=== PATIENT | male | born 1980 | race Caucasian/White ===

== ENCOUNTER → 2016-10-25 | Outpatient (REF) | payer OTHER ==
[2016-10-25 13:47] LABS: INR 1.01
== END ==
LOC: M LABDRAW1 13:32
PROVIDERS: ATTEND Physical Medicine & Rehabilitation
DX: Z01.818 Encounter for other preprocedural examination (principal); M47.892 Other spondylosis, cervical region

== ENCOUNTER 2019-01-19 07:44 | Day surgery (SDC) | payer OTHER ==
[~2019-01-19] VITALS: Ht 170.2 cm; Wt 116.3 kg
[2019-01-19] MEDS ORDERED: EPINEPHrine INJ 1 MG/ML 1ML AMP ONE (07:45)
[2019-01-19] MEDS ORDERED: dexameTHASONE 10 MG/1 ML VIAL PRES.FREE (J1100) ONE (07:45)
[2019-01-19] MEDS ORDERED: ROPIvacaine 0.5% 30 ML INJECTION (J2795 PER 1MG) ONE (07:45)
[2019-01-19] MEDS ORDERED: fentaNYL 250 MCG/5 ML INJECTION (J3010) As Ordered ONE (08:17)
[2019-01-19] MEDS ORDERED: PROPOFOL 200 MG/20 ML VIAL As Ordered ONE (08:17)
[2019-01-19] MEDS ORDERED: LIDOCAINE 2% INJ 100 MG/5 ML SDV (FOR ANES.) As Ordered ONE ×2 (08:17→12:54)
[2019-01-19] MEDS ORDERED: dexameTHASONE 4 MG/ML 1ML VIAL (J1100) As Ordered ONE (08:17)
[2019-01-19] MEDS ORDERED: ROCURONIUM BROMIDE 50 MG/5 ML VIAL As Ordered ONE (08:17)
[2019-01-19] MEDS ORDERED: ONDANSETRON 4MG/2ML VIAL (J2405) As Ordered ONE (08:17)
[2019-01-19] MEDS ORDERED: MIDAZOLAM INJ 2 MG/2 ML VIAL (J2250) As Ordered ONE ×2 (08:18→09:45)
[2019-01-19] MEDS ORDERED: IBUP80TA PO (08:58)
[2019-01-19] MEDS ORDERED: VANCOMYCIN 1000 MG/20 ML VIAL (J3370) As Ordered ONE (09:37)
[2019-01-19] MEDS ORDERED: VANCOMYCIN HCL 1,000 MG, VIAL MATE ADAPTER 1 EACH in D5W 250 ML IV ONE (09:45)
[2019-01-19] MEDS ORDERED: fentaNYL 100 MCG/2 ML INJECTION (J3010) As Ordered ONE (09:45)
[2019-01-19] MEDS ORDERED: EPINEPHrine 1MG/ML INJ 30ML MD-VIAL As Ordered ONE (10:07)
[2019-01-19] MEDS ORDERED: MIDAZOLAM INJ 2 MG/2 ML VIAL (J2250) IV ONE (10:15)
[2019-01-19] MEDS ORDERED: fentaNYL 100 MCG/2 ML INJECTION (J3010) IV ONE (10:15)
[2019-01-19] MEDS ORDERED: ACETAMINOPHEN 1000MG 100ML IV BTL (OFIRMEV) (J0131 PER 10MG) As Ordered ONE (11:27)
[2019-01-19] MEDS ORDERED: LR 1,000 ML IV SCH ×2 (13:45)
[2019-01-19] MEDS ORDERED: fentaNYL 100 MCG/2 ML INJECTION (J3010) IV PRN (13:45)
[2019-01-19] MEDS ORDERED: ONDANSETRON 4MG/2ML VIAL (J2405) IV PRN (13:45)
[2019-01-19 14:55] VITALS: BP 138/84
--- NOTE | 2019-01-21 15:05 | RO ---
DATE OF PROCEDURE: 01/19/2019 PREOPERATIVE DIAGNOSES: 1. Right shoulder posterior labral tear. 2. Right shoulder possible superior labral tear. 3. Right shoulder acromioclavicular joint arthritis. 4. Right shoulder impingement. POSTOPERATIVE DIAGNOSES 1. Right shoulder posterior labral tear. 2. Right shoulder type 4 superior labral tear. 3. Right shoulder acromioclavicular (AC) joint arthritis. 4. Right shoulder impingement. 5. Right shoulder partial rotator cuff tear. PROCEDURES: 1. Right shoulder arthroscopy with posterior labral repair. 2. Right shoulder open subpectoral biceps tenodesis. 3. Right shoulder arthroscopic distal clavicle excision. 4. Right shoulder subacromial decompression including acromioplasty and rotator cuff debridement. SURGEON: Dr. Antonino Rodriguez. DIPPER AND BAKER: SOO Barnes ANESTHESIA: General: Preoperative nerve block. IV FLUIDS: Lactated Ringer's. ESTIMATED BLOOD LOSS 5 mL IMPLANTS: Arthrex proximal biceps button times one, Arthrex 2.9 mm PushLock anchor times three. CLOSURE: Nylon and Monocryl DESCRIPTION OF PROCEDURE: Patient identified in the preoperative holding area. The right shoulder was marked by myself. He had an interscalene nerve block by anesthesia. He is brought to the operating room, placed supine on a well-padded operating room (OR) table. General anesthesia was induced. Exam under anesthesia revealed 170 degrees of forward flexion, 90 of external rotation, grade 2+ posterior load and shift, grade 1 anterior load and shift. He was then placed into the left side down lateral decubitus position with an axillary roll and all bony prominences were well padded. He had bilateral Venodyne boots for deep venous thrombosis (DVT) prophylaxis. He received appropriate IV antibiotics within 1 hour of incision. The right arm was placed into the Arthrex STaR sleeve lateral decubitus traction heck with 10 pounds of traction. The right shoulder was then prepped and draped in normal sterile fashion with Chloraprep. Prior to incision time-out was performed per hospital protocol. Chuck Chávez and was present the entire procedure and participated in all essential portions of the procedure. This included patient positioning and draping, holding the arthroscope, holding retractors and assisting with the Whipstitch during the biceps tenodesis, holding the arthroscope and retrieving sutures during the labral repair and wound closure and applying the sling. The right shoulder was insufflated with lactated Ringer's. A standard posterior viewing portal made with [id number]. 30-degree arthroscope introduced into the joint and a diagnostic arthroscopy revealed tearing of the anterior and superior labrum. Examination of the superior labrum revealed extensive tearing from anterior to posterior including the biceps labral anchor with tearing extending up into the long head of the biceps tendon itself with a bucket-handle flap of labral tissue consistent with a type 4 superior labral tear. There was a Harshil complex variant. No tearing of the anterior inferior labrum. The subscapularis appeared pristine. There is no significant tearing of the intra-articular portion of the rotator cuff. An anterior working portal was established through the rotator interval just above the subscapularis and an accessory superolateral portal just anterior to the biceps also through the interval. On probing of the superior labrum, this confirmed the presence of a type 4 SLAP tear. I then used the shaver to perform a labral debridement. On probing of the posterior labrum, there was tearing from the 6:30 to 9-o'clock position, and given the patient's posterior instability symptoms, this required a posterior labral repair. This also required a tenotomy of the long head of the biceps so the meniscal punch was used to release the long head of biceps off the superior labrum and then the remaining superior labral tear was debrided. I then proceeded with an open biceps tenodesis. I made an incision just lateral to the axilla with a 15 blade, dissected it with Metzenbaum scissors down to the biceps fascia which was carefully opened. Right angle clamp used to dissect out the long head of biceps. Then a running locking whip stitch placed with a FiberLoop suture and the sutures loaded through the Arthrex proximal biceps button per routine. A drill hole was made within the bicipital groove with the spade tip drill bit and then irrigation used to remove bony debris. The button was passed through the drill hole on its media relations manager. The sutures were toggled, which flipped the button and then the tendon was docked along the bicipital groove. The curve-free needle was used to pass one limb of suture back through the tendon and lock the construct in place by tying knots by hand. This nicely restore the resting tension. The incision was extensively irrigated and then closed in layered fashion with #2-0 Vicryl and Monocryl. At the end of the case Steri-Strips were placed. The arthroscope was then placed through the accessory superolateral portal giving a better view at the posterior labral tear. On probing, there was an unstable tear and the percutaneous labral repair kit was used to create an accessory posterolateral portal to give it better angle for drilling into the glenoid. The hooked cautery was then used to develop the plane between the posterior labral tear and articular cartilage. Labral elevators were used to subperiosteally elevate labrum and capsule and a rasp used to create a bleeding surface. The suture lasso was then used to shuttle nitinol wire through the posterior inferior labrum and capsule and labral tape was then passed. These were loaded through the Arthrex 2.9 mm PushLock anchor per routine. The appropriate drill and drill sleeve were used to create a socket at the 6:30 position and then the anchor was inserted in tension by hand and then malleted per routine with excellent fixation. Sutures were cut with arthroscopic joint cutter. The steps were repeated with two additional PushLock anchors and labral tape at the 7:30 and 8:30 position. This nicely restored the bumper into the posterior inferior labrum. The shoulder was then irrigated and drained. The arthroscope was placed into the subacromial space where there was extensive tendinopathy of the supraspinatus. Lateral working portal was established and a bursectomy performed with a shaver and cautery. On probing of the supraspinatus. There was free edge tearing. I would estimate about a 10% partial tear, something low grade. The shaver was used to perform a debridement. There was a subacromial spur an acromioplasty was performed with the bur. Attention was then turned to the distal clavicle excision where there was near bone on bone contact. Cautery was used to clear soft tissue out from the AC joint and then a bur used to remove approximately 5-6 mm of the distal clavicle. The arthroscope was intermittently placed through the anterior portal to ensure no posterior-superior bone remained. Once there was an excellent decompression of the AC joint, the shoulder was at irrigated and drained. Portal was closed with nylon suture. A bulky sterile dressing was applied. Carefully placed into his ARC 2 sling in the gunslinger position. He was extubated, transferred to postanesthesia care unit (PACU) in stable condition. All counts correct times two. Complications: none.
== END 2019-01-19 15:08 | disposition home or self-care (01) ==
LOC: M SDC 07:44
PROVIDERS: ATTEND Orthopaedic Surgery
DX: S43.431A Superior glenoid labrum lesion of right shoulder, initial encounter (principal); M19.011 Primary osteoarthritis, right shoulder; M75.41 Impingement syndrome of right shoulder; M75.111 Incomplete rotator cuff tear or rupture of right shoulder, not specified as traumatic; Z88.0 Allergy status to penicillin; Y92.9 Unspecified place or not applicable; Y93.9 Activity, unspecified
CPT/HCPCS: 23430; 29807; 29824; 29826; 64415; 88304; C1713; J0131; J1100; J2250; J2405; J2795; J3010; J3370